=== PATIENT | female | born 1965 | race Caucasian/White ===

== ENCOUNTER 2020-12-09 20:26 | Emergency (ER) | payer OTHER ==
[~2020-12-09] VITALS: Ht 157.5 cm; Wt 94.3 kg
[2020-12-09] MEDS ORDERED: FORTAMET1000 MG (20:47)
[2020-12-09] MEDS ORDERED: ATORVASTATIN CA10 MG (20:48)
[2020-12-09] MEDS ORDERED: CIPRO500 MG PO (21:57)
[2020-12-09] MEDS ORDERED: DICLOFENAC SODI75 MG PO (21:57)
== END 2020-12-09 22:02 | disposition home or self-care (01) ==
LOC: ER 20:26
DX: S61.227A Laceration with foreign body of left little finger without damage to nail, initial encounter (principal); W23.0XXA Caught, crushed, jammed, or pinched between moving objects, initial encounter; Y93.89 Activity, other specified; Y92.89 Other specified places as the place of occurrence of the external cause; Y99.8 Other external cause status